=== PATIENT | male | born 1960 | race Caucasian/White ===

== ENCOUNTER 2016-12-04 14:02 | Emergency (ER) | payer OTHER ==
[~2016-12-04] VITALS: Wt 77.0 kg
--- NOTE | 2016-12-04 14:52 | RADRPT ---
PROCEDURE: XR Right Hand CLINICAL INDICATION: Right third digit caught in door TECHNIQUE: PA, oblique, and lateral radiographs were submitted. COMPARISON: None FINDINGS: Osseous structures: appear well mineralized and intact with no fracture or destructive process iden tified. Joint spaces: are well maintained, with no significant spurring, erosion or joint effusion evident. Soft tissues: appear unremarkable. IMPRESSION: Unremarkable right hand. Physician Rea Date Time Electronically viewed and signed by Jos Leary Physician on 12/04/2016 14:51 /
[2016-12-04] MEDS ORDERED: IBUP-1542 PO (15:01)
--- NOTE | 2016-12-04 15:29 | ERD ---
ER Documentation Chief Complaint Date/Time DATE: 12/04/16 TIME: 15:15 Chief Complaint right middle finger injury x2 days after car door slammed on finger HPI Patient is a 56-year-old male who presents to the ED for concerns of right middle finger pain 4 days. Patient states he accidently got his finger jammed in the car door. Patient reports bleeding under his nail. Patient states he has swelling to his distal aspect of his right middle finger. Patient reports normal range of motion of the finger however the swelling is concerning to him. Patient denies any fevers or chills. Denies any fractures or injuries to the affected extremity in the past. ROS All systems reviewed and are negative except as per history of present illness. Medications Home Meds Active Scripts Ibuprofen* (Motrin*) 600 Mg Tab, 600 MG PO Q6, #20 TAB Prov:ANTOINE CHEUNG PA-C 12/04/16 PMhx/Soc Medical and Surgical Hx: pt denies Medical Hx, pt denies Surgical Hx History of Surgery: No Anesthesia Reaction: No Hx Neurological Disorder: No Hx Respiratory Disorders: No Hx Cardiac Disorders: No Hx Psychiatric Problems: No Hx Miscellaneous Medical Probl: No Hx Alcohol Use: No Hx Substance Use: No Hx Tobacco Use: No Smoking Status: Never smoker Physical Exam Vitals Vital Signs Date Time Temp Pulse Resp B/P Pulse Ox O2 Delivery O2 Flow Rate FiO2 12/04/16 14:04 97.8 53 18 144/83 98 Physical Exam GENERAL: Well-developed, well-nourished male. Appears in no acute distress. HEAD: Normocephalic, atraumatic. EYES: Pupils are equally reactive bilaterally. EOMs grossly intact. No conjunctival erythema. ENT: Moist mucous membranes. No uvula deviation. No kissing tonsils. NECK: Supple. No meningismus. Normal range of motion of the neck. LUNG: Clear to auscultation bilaterally. No rhonchi, wheezing, rales or coarse breath sounds. HEART: Regular rate and rhythm. No murmurs, rubs or gallops. EXTREMITIES: Equal pulses bilaterally. No peripheral clubbing, cyanosis or edema. No unilateral leg swelling. NEUROLOGIC: Alert and oriented. Moving all four extremities without any difficulty. Normal speech. Steady gait. SKIN: Normal color. Warm and dry. RIGHT HAND: No obvious finger deformity. Swelling noted to the tip of the third digit. Superficial abrasion noted under the nail bed. Complete subungual hematoma noted of the third digit nail. Full ROM of the wrist. Normal ROM of all digits. Patient able to bend at the third digit PIP and DIP joint without any difficulty. Patient able to pronate and supinate without any difficulty. Tender to palpation of the distal aspect of the third digit. Nontender palpation of remaining digits, hand and wrist. Sensation intact to light touch. Neurovascularly intact. No snuffbox tenderness noted. 2+ radial pulses. Procedures/MDM ED COURSE: The patient was stable throughout ED course. I kept the patient and/or family informed of laboratory and diagnostic imaging results throughout the ED course. DIAGNOSTIC IMAGING: Read by radiologist. Patient: JOSEFA GLEASON : 1960 Age: 56 Sex: M MR #: [id number] DOS: 12/04/16 1429 Ordering MD: ANTOINE CHEUNG PA-C Location: [facility] Room/Bed: PROCEDURE: XR Right Hand CLINICAL INDICATION: Right third digit caught in door TECHNIQUE: PA, oblique, and lateral radiographs were submitted. COMPARISON: None FINDINGS: Osseous structures: appear well mineralized and intact with no fracture or destructive process identified. Joint spaces: are well maintained, with no significant spurring, erosion or joint effusion evident. Soft tissues: appear unremarkable. IMPRESSION: Unremarkable right hand. Physician Rea Date Time Electronically viewed and signed by Physician Rea on 12/04/2016 14:51 RH/ CC: ANTOINE CHEUNG PA-C PROCEDURES: Verbal consent was obtained prior to procedure. Subungual hematoma drainage by me: Anesthesia: none Location: 3rd digit right nail Technique: Using sterile cautery pen a small pinpoint hole was placed mid nail. Adequate bright red blood evacuated with gentle pressure. Packing: Non-adherent dressing applied Complications: None Recommend bid dressing changes and warm water soaks. MEDICATIONS GIVEN: None Patient was offered analgesics however he declined. MEDICAL DECISION MAKING: Patient is a 56-year-old male who presents with right third digit finger pain after getting his finger jammed in the car door 4 days ago. Patient reports bleeding under his nail bed. Patient reported swelling. Vital signs were reviewed. Patient was afebrile. Patient was not hypoxic. X-ray imaging of the right hand was obtained. X-ray imaging was unremarkable. Using cautery pen , a small pinpoint hole was placed into the patient's nail to allow for drainage of a subungual hematoma. Patient's finger was dressed appropriately. Patient was advised to continue monitor symptoms. Patient was advised he may lose his nail, it will regrow. At this time, patient's presentation is most consistent with the finger sprain and subungual hematoma. There is a low suspicion for carpal bone fracture, scaphoid fracture, metacarpal fracture, phalanx fracture, boutonnieres deformity, mallet finger, gout, finger avulsion injury, and syndrome. PRESCRIPTIONS: Ibuprofen DISCHARGE: At this time, patient is stable for discharge and outpatient management. I have instructed the patient to follow-up with his/her primary care physician in 1-2 days. I have discussed with the patient the possibility of needing to see an [facility] traffic control specialist center for further workup and imaging if the pain persists. I have instructed the patient to promptly return to the ER for any new or worsening symptoms including increased pain, swelling, redness, warmth or fever. The patient and/or family expressed understanding of and agreement with this plan. All questions were answered. Home care instructions were provided. Disclaimer: Inadvertent spelling and grammatical errors are likely due to EHR/ dictation software use and do not reflect on the overall quality of patient care. Also, please note that the electronic time recorded on this note does not necessarily reflect the actual time of the patient encounter. Departure Diagnosis: Primary Impression: Subungual hematoma of finger Encounter type: initial encounter Qualified Code: S60.10XA - Subungual hematoma of finger, initial encounter Additional Impression: Finger injury Encounter type: initial encounter Laterality: right Qualified Code: S69.91XA - Injury of finger of right hand, initial encounter Condition: Stable Patient Instructions: Subungual Hematoma, Sprain Finger Referrals: [facility] Hours: Mon-Fri 9:00 AM - 5:00 PM [facility] YOU HAVE RECEIVED A MEDICAL SCREENING EXAM AND THE RESULTS INDICATE THAT YOU DO NOT HAVE A CONDITION THAT REQUIRES URGENT TREATMENT IN THE EMERGENCY DEPARTMENT. FURTHER EVALUATION AND TREATMENT OF YOUR CONDITION CAN WAIT UNTIL YOU ARE SEEN IN YOUR DOCTORS OFFICE WITHIN THE NEXT 1-2 DAYS. IT IS YOUR RESPONSIBILITY TO MAKE AN APPOINTMENT FOR FOLOW-UP CARE. IF YOU HAVE A PRIMARY DOCTOR --you should call your primary doctor and schedule an appointment IF YOU DO NOT HAVE A PRIMARY DOCTOR YOU CAN CALL OUR PHYSICIAN REFERRAL HOTLINE AT IF YOU CAN NOT AFFORD TO SEE A PHYSICIAN YOU CAN CHOSE FROM THE FOLLOWING [facility] [address] [facility] [address] [facility] [address] [facility] [address] [address] [facility] [address] [facility] [address] [facility]. [facility] YOU HAVE RECEIVED A MEDICAL SCREENING EXAM AND THE RESULTS INDICATE THAT YOU DO NOT HAVE A CONDITION THAT REQUIRES URGENT TREATMENT IN THE EMERGENCY DEPARTMENT. FURTHER EVALUATION AND TREATMENT OF YOUR CONDITION CAN WAIT UNTIL YOU ARE SEEN IN YOUR DOCTORS OFFICE WITHIN THE NEXT 1-2 DAYS. IT IS YOUR RESPONSIBILITY TO MAKE AN APPOINTMENT FOR FOLOW-UP CARE. IF YOU HAVE A PRIMARY DOCTOR --you should call your primary doctor and schedule and appointment IF YOU DO NOT HAVE A PRIMARY DOCTOR YOU CAN CALL OUR PHYSICIAN REFERRAL HOTLINE AT . IF YOU CAN NOT AFFORD TO SEE A PHYSICIAN YOU CAN CHOSE FROM THE FOLLOWING [facility]: [facility] [address] [place] [address] [facility] [address] [place] [address] [facility] [address] [place] [address] Additional Instructions: Call your primary care doctor TOMORROW for an appointment during the next 1-2 days.See the doctor sooner or return here if your condition worsens before your appointment time. ANTOINE CHEUNG PA-C Dec 04, 2016 15:27
== END 2016-12-04 15:05 | disposition home or self-care (01) ==
LOC: FTE 14:02
DX: S69.91XA Unspecified injury of right wrist, hand and finger(s), initial encounter (principal); S60.131A Contusion of right middle finger with damage to nail, initial encounter; W23.1XXA Caught, crushed, jammed, or pinched between stationary objects, initial encounter; Y92.9 Unspecified place or not applicable
CPT/HCPCS: 11740; 73130; Z7502